=== PATIENT | female | born 1975 | race Two or more races ===

== ENCOUNTER 2018-07-09 00:10 | Emergency (ER) | payer OTHER ==
[~2018-07-09] VITALS: Ht 160 cm; Wt 108.9 kg
[~2018-07-09 00:10] MED LIST: LEVO-28 PO; METR500T PO
[2018-07-09 07:00] VITALS: BP 122/67
[2018-07-09] MEDS ORDERED: SODIUM CHLORIDE 0.9% 500 ML IV ONE (07:59)
[2018-07-09] MEDS ORDERED: METOCLOPRAMIDE HCL 5MG/ml INJ 2ml VIAL IV ONE (08:00)
[2018-07-09] MEDS ORDERED: KETOROLAC TROMETH 30 MG/ML 1ML VIAL IV ONE (08:00)
== END 2018-07-09 10:57 | disposition home or self-care (01) ==
LOC: ER 00:11
DX: M75.52 Bursitis of left shoulder (principal); E66.01 Morbid (severe) obesity due to excess calories; E46 Unspecified protein-calorie malnutrition; Z68.41 Body mass index [BMI] 40.0-44.9, adult; Z88.8 Allergy status to other drugs, medicaments and biological substances; Z90.49 Acquired absence of other specified parts of digestive tract
CPT/HCPCS: 72125; 73030; 81025; 93005; 96374; 96375; 99285; J1885; J2765; J7030; 29105

== ENCOUNTER 2021-12-19 08:21 | Emergency (ER) | payer OTHER ==
[~2021-12-19] VITALS: Ht 162.6 cm; Wt 98.0 kg
[2021-12-19 09:19] VITALS: BP 117/68
[2021-12-19] MEDS ORDERED: KETOROLAC TROMETH 60MG/2ML VIAL IM ONE (09:45)
== END 2021-12-19 11:36 | disposition home or self-care (01) ==
LOC: ER 08:21
DX: S80.12XA Contusion of left lower leg, initial encounter (principal); Z90.49 Acquired absence of other specified parts of digestive tract; Z79.899 Other long term (current) drug therapy; Z88.8 Allergy status to other drugs, medicaments and biological substances; V43.52XA Car driver injured in collision with other type car in traffic accident, initial encounter; Y93.89 Activity, other specified; Y92.410 Unspecified street and highway as the place of occurrence of the external cause; Y99.8 Other external cause status
CPT/HCPCS: 73590; 96372; 99283; J1885

== ENCOUNTER 2025-07-13 18:56 | Emergency (ER) | payer OTHER ==
[~2025-07-13] VITALS: Ht 160 cm; Wt 99.6 kg
[~2025-07-13 18:56] MED LIST changes: -LEVO-28 PO; +LEVO500T91 PO
[2025-07-13 21:29] VITALS: BP 105/63; TEMP 98.1
[2025-07-13 21:31] VITALS: PULSE 85; RESP 16; O2SAT 96
[2025-07-13] MEDS: KETOROLAC TROMETH 60MG/2ML VIAL IM ONE (21:51)
[2025-07-13] MEDS ORDERED: CYCL-837 PO (21:53)
[2025-07-13] MEDS ORDERED: IBUP-1456 PO (21:53)
--- NOTE | 2025-07-13 21:53 | ED.PDOC ---
Musculoskeletal HPI Comments 50-year-old female presents to ER with complaints of left leg pain x1 day. Patient reports that she woke up with unprovoked left leg pain at 2:00 a.m. prior to arrival to ER. She rates her current pain a "burning" 06/27 that she states starts in her left lower leg and radiates towards her left buttock. Reports that she did take Tylenol for her pain without relief. Patient presents to ER ambulatory on arrival, with steady gait, in no distress with vitals stable. Denies fever, body aches, chills, shortness of breath, back pain, hip pain or any further symptoms/complaints Chief Complaint: Lower Extremity Time Seen by MD: 19:33 Primary Care Provider: UNKNOWN Reviewed Notes: Nurses Notes, Medications, Allergies Allergies: Coded Allergies: Ceftriaxone (Verified Adverse Reaction, Intermediate, ITCY, HIVES LIPS SWELLING, 07/09/18) User: Maryjo Boles RN Date: 05/09/15 13:13 Type: Emergency Department Notes ABX RETURNED FROM [facility] WITH PATIENT COMPLAINING OF ITCHINESS TO BODY. ROCEPH[facility] STOPPED AND DR. EVLA PAGED Home Meds Active Scripts Ibuprofen (Ibuprofen) 800 Mg Tab, 1 TAB PO TID PRN, #30 TAB 0 Refills Prov:OLIVER MONTES 07/13/25 Cyclobenzaprine Hcl (Cyclobenzaprine Hcl) 5 Mg Tab, 1 TAB PO QHSP, #14 TAB 0 Refills Prov:OLIVER MONTES 07/13/25 Metronidazole (Flagyl) 500 Mg Tab, 500 MG PO TID, #15 TAB Prov:EMELY VILLAFANA MD 05/10/15 Levofloxacin Hemihydrate (LEVOFLOXACIN) 500 Mg Tab, 500 MG PO DAILY, #3 TAB Prov:EMELY VILLAFANA MD 05/10/15 Information Source: Patient Mode of Arrival: Ambulatory Past Medical History PAST MEDICAL HISTORY: Denies Surgical History: Cholecystectomy, , Tubal Ligation CREEL SELECTOR History: No Pertinent CREEL SELECTOR History Family History Family History: Unknown Social History Smoker: Non-Smoker Alcohol: Denies ETOH Use Drugs: Denies Drug Use Lives In: Home Constitutional: denies: chills, diaphoresis, fatigue, fever, malaise, sweats, weakness, others EENTM: denies: blurred vision, double vision, ear bleeding, ear discharge, ear drainage, ear pain, ear ringing, eye pain, eye redness, hearing loss, mouth pain, mouth swelling, nasal discharge, nose bleeding, nose congestion, nose pa in, photophobia, tearing, throat pain, throat swelling, voice changes, others Respiratory: denies: cough, hemoptysis, orthopnea, SOB at rest, shortness of breath, SOB with excertion, stridor, wheezing, others Cardiovascular: denies: chest pain, dizzy spells, diaphoresis, Dyspnea on exertion, edema, irregular heart beat, left arm pain, lightheadedness, palpitations, PND, syncope, others Gastrointestinal: denies: abdomen distended, abdominal pain, blood streaked bowels, constipated, diarrhea, dysphagia, difficulty swallowing, hematemesis, melena, nausea, poor appetite, poor fluid intake, rectal bleeding, rectal pain, vomiting, others Genitourinary: denies: abnormal vagina bleeding, burning, dyspareunia, dysuria, flank pain, frequency, hematuria, incontinence, pain, , vagina discharge, urgency, others Neurological: denies: dizziness, fainting, headache, left sided numbness, left sided weakness, numbness, paresthesia, pre-existing deficit, right sided numbness, right sided weakness, seizure, speech problems, tingling, tremors, weakness, others Musculoskeletal: reports: others (As stated in HPI) Integumetry: denies: bruises, change in color, change in hair/nails, dryness, laceration, lesions, lumps, rash, wounds, others Allergic/Immunocompromised: denies: Difficulty Healing, Frequent Infections, Hives, Itching, others Hematologic/Lymphatic: denies: anemia, blood clots, easy bleeding, easy bruising, swollen glands, others Endocrine: denies: excessive hunger, excessive sweating, excessive thirst, excessive urination, flushing, intolerance to cold, intolerance to heat, unexplained weight gain, unexplained weight loss, others Psychiatric: denies: anxiety, bipolar disorder, depression, hopeless, panic disorder, schizophrenia, sleepless, suicidal, others Physical Exam General Appearance: No Apparent Distress HEENT: PERRL/EOMI Neck: Full Range of Motion, Non-Tender, Normal Respiratory: Chest Non-Tender, Lungs Clear, No Accessory Muscle Use, No Respiratory Distress, Normal Breath Sounds Cardiovascular: No Murmur, No Gallop, Regular Rate/Rhythm Breast Exam: Deferred Gastrointestinal: NOT DONE Genitalia: Deferred Pelvic: Deferred Rectal: Deferred Extremities: Calf tenderness (TTP to left lower calf noted), Normal capillary refill, Normal range of motion Neurologic: Alert, No Motor Deficits, Normal Affect, Normal Mood, No Sensory Deficits Cerebellar Function: Normal Reflexes: Normal Skin: Dry, Normal Color, Warm Peripheral Pulses: 2+ femoral (R), 2+ femoral (L), 2+ dorsalis pedis (R), 2+ dorsalis pedis (L), 2+ Radial (R), 2+ Radial (L), 2+ Brachial (R), 2+ Brachial (L) Lymphatic: No Adenopathy Was a procedure done? Was a procedure done?: No Sedation Sedation?: No Differential Diagnosis EXT Differential Diagnosis: Cellulitis, Deep Vein Thrombosis, Fracture, Neurovascular injury X-Ray, Labs, Meds, VS Vital Signs Date Time Temp Pulse Resp B/P (MAP) Pulse Ox O2 Delivery O2 Flow Rate FiO2 07/13/25 21:31 85 16 96 Room Air 07/13/25 21:29 98.1 85 16 105/63 (77) 96 98.1 07/13/25 18:57 97.7 87 19 119/67 97 97.7 Current Medications Medications (Trade) Dose Ordered Sig/[facility] Route Start Time Stop Time Status Last Admin Ketorolac Tromethamine (Toradol Injection) 60 mg ONCE ONCE IM 07/13/25 21:45 07/13/25 21:46 DC 07/13/25 21:51 PATIENT: DENISE VALENZUELAT: [id number]: [id number] : 1975 LOC: ER ROOM / BED: / AGE / SEX: 50 / F ADM STATUS: REG ER SERVICE 41 ORDERING PHYSICIAN: OLIVER MONTES PROCEDURE(s): LLDVT - LT Lower DVT REASON: left leg pain ORDER NUMBER(s): [id number], ACCESSION NUMBER(s): [id number] LEFT LOWER EXTREMITY VENOUS DOPPLER ULTRASOUND CLINICAL HISTORY: left leg pain COMPARISON: None TECHNIQUE: Grayscale ultrasound with compression, Color Doppler flow and duplex spectral Doppler sonography of the left lower extremity femoral popliteal deep venous system is performed. FINDINGS: Left common femoral vein: Negative. Left greater saphenous vein: Negative. Left deep femoral vein: Negative. Left femoral vein: Negative. Left popliteal vein: Negative. Other: Visualized popliteal trifurcation and posterior tibial vein demonstrate color flow. IMPRESSION: No sonographic evidence of deep venous thrombosis in the left lower extremity at this time. ATED BY: JORGE A IRIZARRY MD DICTATED DATE/TIME: 07/13/252253 SIGNED BY: JORGE A IRIZARRY MD SIGNED DATE/TIME: 07/13/252253 CC: Left lower DVT ultrasound reviewed Toradol 60 mg IM ordered Patient neurovascularly intact and reported improvement symptoms prior to di emily Advised to follow up with PCP in 1-2 days Patient verbalized understanding and agreeable with current plan of care Advised to return to ER immediately if symptoms worsen Images Reviewed?: Images reviewed and evaluated by me Time of 1ST Reevaluation: 21:24 Reevaluation 1ST: N/A Patient Education/Counseling: Diagnosis, Treatment, Prognosis, Need For Follow Up Family Education/Counseling: No Family Present Departure 1 Departure Time of Disposition: 21:50 Impression: Primary Impression: Musculoskeletal pain of left lower extremity Disposition: 01 HOME / SELF CARE / HOMELESS Condition: Stable e-Prescriptions Ibuprofen (Ibuprofen) 800 Mg Tab 1 TAB PO TID PRN, #30 TAB 0 Refills Prov: OLIVER MONTES 07/13/25 Cyclobenzaprine Hcl (Cyclobenzaprine Hcl) 5 Mg Tab 1 TAB PO QHSP, #14 TAB 0 Refills Prov: OLIVER MONTES 07/13/25 Discharged With: Self Critical Care Note Critical Care Time?: No Stability Stability form required: No Heart Score Heart Score: Heart Score Response (Comments) Value History N/A 0 EKG N/A 0 Age N/A 0 Risk Factors N/A 0 Troponin N/A 0 Total 0 OLIVER MONTES Jul 13, 2025 21:53
--- NOTE | 2025-07-13 22:57 | DVH ---
LEFT LOWER EXTREMITY VENOUS DOPPLER ULTRASOUND CLINICAL HISTORY: left leg pain COMPARISON: None TECHNIQUE: Grayscale ultrasound with compression, Color Doppler flow and duplex spectral Doppler son ography of the left lower extremity femoral popliteal deep venous system is performed. FINDINGS: Left common femoral vein: Negative. Left greater saphenous vein: Negative. Left deep femoral vein: Negative. Left femoral vein: Negative. Left popliteal vein: Negative. Other: Visualized popliteal trifurcation and posterior tibial vein demonstrate color flow. IMPRESSION: No sonographic evidence of deep venous thrombosis in the left lower extremity at this time.
== END 2025-07-13 23:31 | disposition home or self-care (01) ==
LOC: ER 18:56
DX: M79.662 Pain in left lower leg (principal); Z98.51 Tubal ligation status; Z90.49 Acquired absence of other specified parts of digestive tract; Z88.1 Allergy status to other antibiotic agents
CPT/HCPCS: 93971; 96372; 99285; J1885